=== PATIENT | female | born 1940 ===

== ENCOUNTER 2020-07-27 06:00 | Day surgery (SDC) | payer OTHER ==
[2020-07-26 13:42] VITALS: BMI 36.3
[~2020-07-27 06:00] MED LIST: BSS (NA/CA/MG/K) BALANCED SALT SOLUTION OPHTH SOLN 15 ML BOTTLE OS ONE; CHONDROITIN SU A/HYALUR SOD 1 KIT IO ONE; EPINEPHrine/PF 1 MG/1 ML (1:1,000) AMPULE SQ ONE; LIDOCAINE HCL 1% PRESERVATIVE FREE - 30ML VIAL IO ONE; POVIDONE-IODINE 5% OPHTHALMIC PREP 30 ML SOLUTION OS ONE; TETRACAINE 0.5% HCL 0.6ML DROPPER.BOTTLE OS ONE; TOBRAMYCIN/DEXAMETHASONE OPHTH. OINTMENT 1 TUBE OS ONE
[2020-07-27] MEDS ORDERED: TROPICAMIDE 1% OPHTH SOLN 15 ML BOTTLE ONE (07:04)
[2020-07-27] MEDS ORDERED: CIPROFLOXACIN HCL 0.3% OPHTH 2.5ML BOTTLE ONE (07:04)
[2020-07-27] MEDS ORDERED: DICLOFENAC SODIUM 0.1% OPHTHALMIC 2.5ML BOTTLE ONE (07:04)
[2020-07-27] MEDS ORDERED: ACETAMINOPHEN 325 MG TABLET (FP) PO PRN ×2 (07:23→10:56)
[2020-07-27] MEDS ORDERED: TROPICAMIDE 1% OPHTH SOLN 15 ML BOTTLE OP SCH (07:30)
[2020-07-27] MEDS ORDERED: KETOROLAC TROMETHAMINE 0.5% EYE DROP 1 DROP DROPS OP SCH (07:30)
[2020-07-27] MEDS ORDERED: PHENYLEPHRINE 2.5% OPHTH SOLN 15 ML BOTTLE OP SCH (07:30)
[2020-07-27] MEDS ORDERED: CIPROFLOXACIN HCL 0.3% OPHTH 2.5ML BOTTLE OP SCH (07:30)
[2020-07-27] MEDS ORDERED: CIPROFLOXACIN 0.3% EYE DROPS 5 ML BOTTLE OS ONE ×2 (07:35→07:40)
[2020-07-27] MEDS ORDERED: TROPICAMIDE 1% OPHTH SOLN 15 ML BOTTLE OS ONE ×3 (07:35→07:50)
[2020-07-27] MEDS ORDERED: PHENYLEPHRINE 2.5% OPHTH SOLN 15 ML BOTTLE OS ONE ×3 (07:35→07:50)
[2020-07-27] MEDS ORDERED: DICLOFENAC SODIUM 0.1% OPHTHALMIC 2.5ML BOTTLE OS ONE ×3 (07:35→07:51)
[2020-07-27] MEDS ORDERED: CIPROFLOXACIN HCL 0.3% OPHTH 2.5ML BOTTLE OS ONE (07:51)
[2020-07-27] MEDS ORDERED: MIDAZOLAM HCL 2 MG/2 ML SINGLE DOSE VIAL ONE (08:18)
[2020-07-27] MEDS ORDERED: TETRACAINE 0.5% OPHTH SOLN 2 ML BOTTLE ONE (08:32)
[2020-07-27] MEDS ORDERED: EPINEPHrine/PF 1 MG/1 ML (1:1,000) AMPULE ONE (08:32)
[2020-07-27] MEDS ORDERED: TOBRAMYCIN/DEXAMETHASONE OPHTH. OINTMENT 1 TUBE ONE (08:32)
[2020-07-27] MEDS ORDERED: LIDOCAINE HCL/PF 1% SDV 5ML VIAL ONE (08:32)
[2020-07-27] MEDS ORDERED: POVIDONE-IODINE 5% OPHTHALMIC PREP 30 ML SOLUTION ONE (08:33)
--- NOTE | 2020-07-27 08:36 | HP ---
- Patient Scheduled date of Surgery: 07/27/20 Scheduled Surgical Procedure: Phacoemulsification and cataract extraction with PCIOL Affected Eye: Left Chief Complaint (Indication for surgery): Decreased vision affecting ADLs - Ocular History Other Eye History: Other (choroidal nevus, PVD) Eye Medications: vigamox Previous Eye Surgery: none - Medical History Illnesses: Diabetes, Other (hemochromatosis, afib, s/p TAVR, CAD s/p PCI, HTN, HLD, KADEN on CPAP, gerd, clay's esophagus) Current Medications: Ambulatory Orders Cholecalciferol (Vitamin D3) [Vitamin D3 -] 400 unit PO DAILY 07/26/20 Dulaglutide [Trulicity] 0.75 mg SQ WEEKLY 07/26/20 Empagliflozin [Jardiance] 10 mg PO DAILY 07/26/20 Ezetimibe [Zetia -] 10 mg PO DAILY 07/26/20 Furosemide [Lasix] 40 mg PO DAILY 07/26/20 Pantoprazole Sodium [Protonix -] 20 mg PO ASDIR 07/26/20 Sotalol HCl [Sotalol AF] 120 mg PO BID 07/26/20 Allergies/Adverse Reactions: Allergies Allergy/AdvReac Type Severity Reaction Status Date / Time metformin AdvReac Verified 07/26/20 13:43 shellfish derived AdvReac Verified 07/26/20 13:43 Asnzrjt-Opr-Dyb Reductase AdvReac Verified 07/26/20 13:43 Inhibitor Ocular Examination - Best Corrected Visual Acuity Distance: Right eye: 20/30 Distance: Left eye: 20/40 - External/Slit Lamp Examination Abnormalities: ptosis, papilla, telangiectasia - Intraocular Pressure Intraocular Pressure - Right eye: 17 Intraocular Pressure-Left eye: 17 - Lens Lens: 2+ NS - Vitreous/Retina Vitreous/Retina: C: D 0.2 m/v/p wnl + PVD - Special Examination M - Right eye: +1.25-2.50 x 090 M - Left eye: +1.00 -2.50 x 090 K - Right eye: 43.27/45.30 x010 K - Left eye: 43.44/44.76 x 174 AL - Right eye: 23.35 AL - Left eye: 23.22 IOL bag: +22.0 [id number] IOL sulcus: +20.5 MN60AC IOL AC: +18.5 MTA 4UO - Impression Impression: Cataract Left Eye - Plan Plan: Phacoemulsification and cataract extraction - IOL Left eye Post-hospital care will be provided in office on: 07/28/20
--- NOTE | 2020-07-27 08:38 | HP ---
History & Physical Update - History History: No Change - Physical Physical: No Change - Assessment Assessment: No Change - Plan Plan: No Change (H and P reviewed by Dr. Chandler no changes from 07/19/2020)
[2020-07-27] MEDS ORDERED: TETRACAINE 0.5% HCL 0.6ML DROPPER.BOTTLE OS ONE (08:44)
[2020-07-27] MEDS ORDERED: POVIDONE-IODINE 5% OPHTHALMIC PREP 30 ML SOLUTION OS ONE (08:46)
[2020-07-27] MEDS ORDERED: BSS (NA/CA/MG/K) BALANCED SALT SOLUTION OPHTH SOLN 15 ML BOTTLE OS ONE (08:50)
[2020-07-27] MEDS ORDERED: LIDOCAINE HCL 1% PRESERVATIVE FREE - 30ML VIAL IO ONE (08:50)
[2020-07-27] MEDS ORDERED: CHONDROITIN SU A/HYALUR SOD 1 KIT IO ONE (08:50)
[2020-07-27] MEDS ORDERED: EPINEPHrine/PF 1 MG/1 ML (1:1,000) AMPULE SQ ONE (08:59)
[2020-07-27] MEDS ORDERED: TOBRAMYCIN/DEXAMETHASONE OPHTH. OINTMENT 1 TUBE OS ONE (09:08)
[2020-07-27] MEDS ORDERED: CHONDROITIN SU A/HYALUR SOD 1 KIT ONE (09:18)
--- NOTE | 2020-07-27 09:25 | OP ---
Ophthalmology Operative Note Pre-Operative Diagnosis: Cataract Affected Eye: Left Operation: Phacoemulsification and cataract extraction with PCIOL Findings: NS cataract left eye Post-Operative Diagnosis: Same as Pre-op Fourdrinier Machine Operator: None Anesthesiologist: Katherine Eastman Anesthesia: Topical Specimens Removed: none Estimated blood loss: < 1 cc Drains & Tubes with Location: none Operative Report Dictated: Yes
[2020-07-27 10:34] VITALS: BP 137/78; PULSE 58; TEMP 96.8
[2020-07-27] MEDS ORDERED: ONDANSETRON 4 MG/2 ML VIAL IVPUSH PRN (10:56)
[2020-07-27] MEDS ORDERED: LACTATED RINGERS SOLUTION 1,000 ML IV SCH (11:00)
--- NOTE | 2020-07-27 11:01 | OP ---
DATE OF OPERATION: DATE OF DICTATION: 07/27/2020 PREOPERATIVE DIAGNOSIS: Nuclear sclerotic cataract, left eye. POSTOPERATIVE DIAGNOSIS: Nuclear sclerotic cataract, left eye. PROCEDURE: Phacoemulsification and cataract extraction with insertion of posterior chamber intraocular lens, left eye. SURGEON: Shanon Montesinos MD SIMULATION DEVELOPER: None. ANESTHESIA: Topical. ANESTHESIOLOGIST: Katherine Cleveland CRNA PROCEDURE: With the patient sitting upright the 90-degree meridian and the 180-degree meridians were marked using a sterile marking pen. Tetracaine eye drops were applied and the patient was lightly sedated and prepped and draped in the usual sterile fashion so as to expose only the left eye. Ophthalmic Betadine was instilled into the inferior fornix. The lashes were taped out of the surgical field. An eyelid speculum was placed into the left eye. A paracentesis was made in inferior temporal clear cornea at the limbus. Then 0.5 mL of nonpreserved lidocaine 1% was injected into the anterior chamber. Viscoelastic material was instilled into the anterior chamber via the paracentesis. A Morcher ring was used to ebony the 175-degree meridian. A 2.4-mm keratome was then used to create the main incision in temporal clear cornea at the limbus. A continuous curvilinear capsulorrhexis was performed using a cystotome and Utrata forceps. Hydrodissection of the lens cortex was performed using BSS on a cannula until the nucleus was noted to be freely rotating. The phacoemulsification tip was then inserted via the main wound and used to scope 2 perpendicular grooves into the lens nucleus. The nucleus was cracked into 4 quadrants. Each quadrant was lifted out of the capsule into the iris plane and individually phacoemulsified. The remaining cortical material was then aspirated using the irrigation/aspiration port. The capsular bag was inflated using ProVisc and a preloaded AcrySof lens of +22.0 diopters, SN6AT3. It was loaded into its port and injected into the capsular bag. It was centered just shy of the 175-degree ebony and the residual viscoelastic material was removed from the anterior chamber using irrigation and aspiration. The lens was then rotated into the 175-degree meridian and then centered using a Sinskey hook. The wound edges were hydrated using BSS. The wound was tested for leakage and was found to be watertight. Tobradex ointment was placed in the eye. The speculum was removed from the eye and the eyelid was closed. A sterile dressing and shield were placed over the eye and the patient was transferred to the recovery room in stable condition, told to follow up in 1 day. SHANON MONTESINOS M.D. [id number]
== END 2020-07-27 10:40 | disposition home or self-care (01) ==
LOC: JASU-SURG 06:00
PROVIDERS: ATTEND Ophthalmology
PROC: 08RK3JZ Replacement of Left Lens with Synthetic Substitute, Percutaneous Approach (ICD-10-PCS; principal; 2020-07-27 08:30)
DX: H25.12 Age-related nuclear cataract, left eye (principal)